=== PATIENT | male | born 1985 | race African-American/Black ===

== ENCOUNTER 2017-08-08 08:53 | Emergency (ER) | payer MEDICAID ==
[~2017-08-08] VITALS: Ht 167.6 cm; Wt 90.6 kg
[2017-08-08 08:58] VITALS: BP 142/100
[2017-08-08] MEDS ORDERED: FLUORESCEIN SODIUM 1MG/STRIP RIGHTEYE ONE (09:30)
[2017-08-08] MEDS ORDERED: TETRACAINE 0.5% OPHTH DROPS 4ML RIGHTEYE ONE (09:30)
== END 2017-08-08 10:42 | disposition home or self-care (01) ==
LOC: ER 10:06
DX: S05.01XA Injury of conjunctiva and corneal abrasion without foreign body, right eye, initial encounter (principal); X58.XXXA Exposure to other specified factors, initial encounter; Y93.89 Activity, other specified; Y92.89 Other specified places as the place of occurrence of the external cause; Y99.8 Other external cause status
CPT/HCPCS: 99283